=== PATIENT | male | born 1960 | race Caucasian/White ===

== ENCOUNTER → 2016-03-26 | Outpatient (CLI) | payer MEDICAID ==
[~2016-03-26] MED LIST: ALLOPURINOL100 MG PO; CHLORPROMAZINE100 M1 PO; CITALOPRAM HYDR40 MG PO; DIAZEPAM5 M1 PO; GABAPENTIN800 MG PO; GLIPIZIDE ER 5MG5 MG PO; HYDROCHLOROTHIA1 TA2 PO; HYDROCODONE-APA1 TA2 PO; JANUVIA50 MG PO; LITHIUM CARBON300 M2 PO; OMEPRAZOLE20 MG PO; PERCOGESIC1 TAB PO; PRAVASTATIN SOD40 MG PO; SINGULAIR 10 MG10 MG PO; TRICOR 145 MG145 MG NG
--- NOTE | 2016-03-26 16:49 | RADIOLOGY REPORT PS360 ---
CT EXT.LOWER-LT-W/O CONTRAST INDICATION: Posttraumatic pain LEFT TIBIAL PLATEAU FRACTURE COMPARISON: Radiograph of 03/18/2016 TECHNIQUE: Axial images are obtained without contrast. Sagittal and coronal reformatted images are reviewed as well. FINDINGS: No fracture apparent. No evidence of dislocation. There are mild osteoarthritic changes of the medial compartment and patellofemoral joint. There is a prominent area of soft tissue density along the anterior aspect of the knee laterally and medially. Not within the joint and likely represents hematoma. There are some mild stranding of the subcutaneous fat. IMPRESSION: 1. No acute fracture. 2. Large liquefying hematoma about the knee 3. Osteoarthritic change
== END ==
LOC: RAD 14:07
DX: S82.142A Displaced bicondylar fracture of left tibia, initial encounter for closed fracture (principal)

== ENCOUNTER → 2017-02-08 | Outpatient (CLI) | payer MEDICAID ==
[~2017-02-08] MED LIST changes: +DOXEPIN HCL150 MG; +GLIPIZIDE XL5 M1; +GOOD NEIGHBOR P10 M1; +INVOKANA300 MG; +MIRTAZAPINE15 M1; +TAMSULOSIN HYD0.4 MG; +TIZANIDINE HYDRO4 MG; +ZUBSOLV1 TA2; +[UNRECOGNIZED DRUG - OTHER]
[2017-02-08 18:59] LABS: HEMOGLOBIN 15.6 g/dL (14.1-18.0); LYMPH # 2.7 K/mm3 (0.7-4.5); LYMPH % 28.9 % (10-50)
[2017-02-08 19:41] LABS: BUN 16 mg/dL (7-18)
[2017-02-08 19:50] LABS: GFR (ESTIMATED) 77 ML/MIN (>60)
[2017-02-11 14:36] LABS: Folate (Folic Acid) >20.0 ng/mL (>3.0); Vitamin B12 1430 pg/mL (211-946)
[2017-02-12 04:39] LABS: Vitamin D, 25-Hydroxy 19.2 ng/mL (30.0-100.0)
== END ==
LOC: LAB 18:16
PROVIDERS: Physician Assistant
DX: E55.9 Vitamin D deficiency, unspecified (principal); K21.9 Gastro-esophageal reflux disease without esophagitis; R76.8 Other specified abnormal immunological findings in serum; E11.9 Type 2 diabetes mellitus without complications; E53.8 Deficiency of other specified B group vitamins